=== PATIENT | female | born 1965 | race Caucasian/White ===

== ENCOUNTER 2021-03-05 09:59 | Emergency (ER) | payer OTHER ==
[2021-03-05 10:55] LABS: HEMOGLOBIN 15.5 gm/dl (12.3-15.3); RED BLOOD COUNT 5.01 M/UL (4.00-5.10); WHITE BLOOD COUNT 16.4 K/UL (4.5-11.0)
[2021-03-05 11:18] LABS: BUN/CREATININE RATIO 9 (0-10)
== END 2021-03-05 13:17 | disposition home or self-care (01) ==
LOC: ER1 09:59
PROVIDERS: Family Medicine
DX: R10.32 Left lower quadrant pain (principal); R19.7 Diarrhea, unspecified; D72.829 Elevated white blood cell count, unspecified; J44.9 Chronic obstructive pulmonary disease, unspecified; Z90.710 Acquired absence of both cervix and uterus; F17.200 Nicotine dependence, unspecified, uncomplicated
CPT/HCPCS: 80053; 81001; 82550; 82553; 83690; 83874; 84484; 85025; 99284